=== PATIENT | male | born 1975 | race Caucasian/White ===

== ENCOUNTER 2017-06-01 19:03 | Emergency (ER) | payer MEDICAID ==
--- NOTE | 2017-06-01 20:30 | ED Physician Chart ---
ED Chief Complaint/HPI - Patient Information Date Seen:: 06/01/17 Time Seen:: 20:24 Chief Complaint:: Refill medications History of Present Illness:: 41 yo male needs refill of lorazepam 1mg bid for anxiety for 10 years. The patient switched physicians and the insurance won't be effective until 06/21/17. He last took lorazepam 2 days ago. The patient had history of seizure after stopping lorazepam. Allergies:: Allergies Allergy/AdvReac Type Severity Reaction Status Date / Time prochlorperazine Allergy Verified 06/01/17 19:06 [From Compazine] Vitals:: Vital Signs - 8 hr 06/01/17 19:08 Temp 97.9 F HR 107 RR 15 BP 143/92 O2 Sat % 95 ED Review of Systems - Review of Systems General/Constitutional: No fever Skin: No rash Head: No headache Eyes: No pain ENT: No nasal drainage Neck: No neck pain Cardio Vascular: No chest pain Pulmonary: No SOB GI: No nausea, No vomiting Musculoskeletal: No bone or joint pain Psychiatric: Depression, Anxiety Neurological: No focal symptoms ED Past Medical History - Past Medical History Past Medical History: Asthma/COPD Social History: Non Smoker, No Alcohol, No Drug Use Surgical History: None Psychiatricy History: Depression, Other (anxiety) Family Medical History - Family Member Mother History Unknown: Yes ED Physical Exam - Physical Examination General/Constitutional: Awake, Alert Head: Atraumatic Eyes: PERRL Skin: No ecchymosis ENMT: Nasal exam nl Neck: No nuchal rigidity Respiratory: Clear to Auscultation, No Wheeze/Rhonchi/Rales Cardio Vascular: RRR, No murmur, gallop, rubs, NL S1 S2 GI: No tenderness/rebounding/guarding Extremities: normal strength in all extremities Neuro/Psych: No focal deficits ED Assessment - Assessment General Assessment: Anxiety History of seizure Mild intermittent asthma Assessment/Comments:: Lorazepam 1mg q12h prn anxiety #40 D/c home F/u PCP to establish care ANGELA ED Septic Shock - . Is Septic Shock (SBP<90, OR Lactate>4 mmol\L) present?: No - <6hrs of presentation: Vital Signs: Vital Signs - 8 hr 06/01/17 19:08 Temp 97.9 F HR 107 RR 15 BP 143/92 O2 Sat % 95 ED Reassessment (Disposition) - Reassessment Reassessment Condition:: Unchanged - Patient Disposition Discharge/Transfer:: Home ED Discharge Plan - Patient Disposition Admit/Discharge/Transfer: PT DISCHARGED HOME Instructions: Anxiety and Panic Attacks Additional Instructions: FOLLOW UP WITH YOUR PRIMARY MEDICAL DOCTOR ANGELA
== END 2017-06-01 21:00 | disposition home or self-care (01) ==
LOC: ER 19:03
DX: Z76.0 Encounter for issue of repeat prescription (principal)
CPT/HCPCS: Z7502

== ENCOUNTER 2017-07-03 16:22 | Emergency (ER) | payer MEDICAID ==
--- NOTE | 2017-07-03 17:17 | ED Physician Chart ---
ED Chief Complaint/HPI - Patient Information Date Seen:: 07/03/17 Time Seen:: 16:45 Chief Complaint:: Medication Refills History of Present Illness:: pt presents to ER for medication refills; pt has no complaints; Hx of Asthma and Anxiety Disorder; pt denies H/As, S/T, neck pain, C/P, SOB, Abd. Pain, cough , A/N/V/D/C, fever, chills, or urinary s/s; no SIs Allergies:: Allergies Allergy/AdvReac Type Severity Reaction Status Date / Time prochlorperazine Allergy Verified 06/01/17 19:06 [From Compazine] Vitals:: Vital Signs - 8 hr 07/03/17 16:46 Temp 99.1 F HR 106 RR 18 BP 138/83 O2 Sat % 96 Historian:: Patient Review:: Nurse's Note Reviewed ED Review of Systems - Review of Systems General/Constitutional: No fever, No chills, No weight loss, No weakness, No diaphoresis, No edema, No loss of appetite Skin: No skin lesions, No rash, No bruising Head: No headache, No light-headedness Eyes: No loss of vision, No pain, No diplopia ENT: No earache, No nasal drainage, No sore throat, No tinnitus Neck: No neck pain, No swelling, No thyromegaly, No stiffness, No mass noted Cardio Vascular: No chest pain, No palpitations, No PND, No orthopnea, No edema Pulmonary: No SOB, No cough, No sputum, Wheezing GI: No nausea, No vomiting, No diarrhea, No pain, No melena, No hematochezia, No constipation, No hematemesis G/U: No dysuria, No frequency, No hematuria, No nacturia Musculoskeletal: No bone or joint pain, No back pain, No muscle pain Endocrine: No polyuria, No polydipsia Psychiatric: No prior psych history, No depression, Anxiety, No suicidal ideation, No homicidal ideation, No auditory hallucination, No visual hallucination Hematopoietic: No bruising, No lymphadenopathy Allergic/Immuno: No urticaria, No angioedema Neurological: No syncope, No focal symptoms, No weakness, No paresthesia, No headache, No seizure, No dizziness, No confusion, No vertigo ED Past Medical History - Past Medical History Obtainable: Yes Past Medical History: Asthma/COPD Family History: HTN Social History: Non Smoker, No Alcohol, No Drug Use, Surgical History: None Psychiatricy History: None Medication: Reviewed Family Medical History - Family Member Mother History Unknown: Yes ED Physical Exam - Physical Examination General/Constitutional: Awake, Well-developed, well-nourished, Alert, No distress, GCS 15, Non-toxic appearing, Ambulatory Head: Atraumatic Eyes: Lids, conjuctiva normal, PERRL, EOMI Skin: Nl inspection, No rash, No skin lesions, No ecchymosis, Well hydrated, No lymphadenopathy ENMT: External ears, nose nl, Nasal exam nl, Lips, teeth, gums nl Neck: Nontender, Full ROM w/o pain, No JVD, No nuchal rigidity, No bruit, No mass, No stridor Other Neck comments:: supple; no meningeal signs; no cervical tenderness; no bruits Respiratory: Nl effort/Exclusion, Clear to Auscultation, No Wheeze/Rhonchi/Rales Cardio Vascular: RRR, No murmur, gallop, rubs, NL S1 S2, Carotid/Femoral/Distal pulses equal bilaterally GI: No tenderness/rebounding/guarding, No organomegaly, No hernia, Normal BS's, Nondistended, No mass/bruits, No McBurney tenderness, Rectum exam nl Other GI comments:: no pulsatile masses : No CVA tenderness Extremities: No tenderness or effusion, Full ROM, normal strength in all extremities, No edema, Normal digits & nails Neuro/Psych: Alert/oriented, DTR's symmetric, Normal sensory exam, Normal motor strength, Judgement/insight normal, Mood normal, Normal gait, No focal deficits Misc: Normal back, No paraspinal tenderness ED Septic Shock - . Is Septic Shock (SBP<90, OR Lactate>4 mmol\L) present?: No - <6hrs of presentation: Vital Signs: Vital Signs - 8 hr 07/03/17 16:46 Temp 99.1 F HR 106 RR 18 BP 138/83 O2 Sat % 96 ED Reassessment (Disposition) - Reassessment Reassessment:: pt is asymptomatic upon discharge Reassessment Condition:: Improved - Diagnosis Diagnosis:: Dx: Medication Refills; Asthma; Anxiety Reaction Disorder - Aftercare/Follow up Instructions Aftercare/Follow-Up Instructions:: Counseled pt regarding lab results/diagnosis & need follow up, Refer to Discharge Instructions, Counseled pt & family regarding lab results/diagnosis & need follow up Medication Prescribed:: Rx: Ativan 1.0mg po bid prn anxiety (#6); Proventil Inhaler: one puff qid prn wheezing (one bottle); no refills - Patient Disposition Discharge/Transfer:: Home Condition at Disposition:: Stable, Improved (RTER prn if existing s/s reoccur and/or get worse and/or any other new s/s occur; ACIs given for all above Dx; Refer to Psychiatrist/Cat Dog Or Other Pet Groomer/Fishing Accessories Maker ANGELA; F/U with PMD in one day or prn; RTER prn if concerned)
== END 2017-07-03 17:40 | disposition home or self-care (01) ==
LOC: ER 16:22
DX: J45.909 Unspecified asthma, uncomplicated (principal); F41.1 Generalized anxiety disorder; J44.9 Chronic obstructive pulmonary disease, unspecified; Z76.0 Encounter for issue of repeat prescription
CPT/HCPCS: Z7502

== ENCOUNTER 2017-07-13 16:22 | Emergency (ER) | payer MEDICAID ==
--- NOTE | 2017-07-13 17:34 | ED Physician Chart ---
ED Chief Complaint/HPI - Patient Information Date Seen:: 07/13/17 Time Seen:: 17:28 Chief Complaint:: Refill medications History of Present Illness:: 41 yo male again presented for refill of lorazepam 1mg bid for anxiety. He last refilled lorazepam at [place] [facility] on 06/01/17. The patient switched primary care physicians on 06/21/[address] Truman Simons on 06/28/17. However, Dr. Simons refused to fill the prescriptions. The patient came back to ER on 07/03/17. Dr. Zhang refilled some of the prescription. The patient stated that he had history of seizure after stopping lorazepam. He also took Ventolin 1-2 puff qd prn for asthma, trazodone 200mg qhs, and reglan 10mg po qd prn for sliding hiatal hernia. The patient stated that he had switched to a different physician and it would be effective on 07/22/17. A "red flag" was raised on rapid switching physicians within a short period and further investigation was warranted. Allergies:: Allergies Allergy/AdvReac Type Severity Reaction Status Date / Time prochlorperazine Allergy Verified 06/01/17 19:06 [From Compazine] Vitals:: Vital Signs - 8 hr 07/13/17 16:38 Temp 97.6 F HR 108 RR 22 BP 138/83 O2 Sat % 98 ED Review of Systems - Review of Systems General/Constitutional: No fever Skin: No bruising Head: No headache Eyes: No pain ENT: No nasal drainage Neck: No neck pain Cardio Vascular: No chest pain Pulmonary: No SOB GI: No nausea, No vomiting Musculoskeletal: No bone or joint pain Psychiatric: Depression, Anxiety Neurological: No focal symptoms ED Past Medical History - Past Medical History Past Medical History: HTN, Asthma/COPD, Seizures (Grand mal), Other (Sliding hiatal hernia) Social History: Non Smoker, No Alcohol, Illicit Drug Use Surgical History: None Psychiatricy History: Depression, Other (insomnia, anxiety) Family Medical History - Family Member Mother History Unknown: Yes ED Physical Exam - Physical Examination General/Constitutional: Awake, Alert Head: Atraumatic Eyes: PERRL Skin: No ecchymosis ENMT: Nasal exam nl Neck: No nuchal rigidity Respiratory: Clear to Auscultation, No Wheeze/Rhonchi/Rales Cardio Vascular: RRR, No murmur, gallop, rubs, NL S1 S2 GI: No tenderness/rebounding/guarding Extremities: normal strength in all extremities Neuro/Psych: No focal deficits ED Labs/Radiology/EKG Results - Lab Results Results: Laboratory Results - last 24 hr 07/13/17 07/13/17 07/13/17 14:51 14:51 18:00 WBC 6.1 RBC 6.19 H Hgb 18.3 Hct 54.9 MCV 88.6 MCH 29.5 MCHC Differential 33.3 RDW 12.5 Plt Count 192 MPV 6.9 Neutrophils % 60.4 Lymphocytes % 25.8 Monocytes % 9.1 Eosinophils % 4.6 Basophils % 0.1 Sodium 138 Potassium 4.0 Chloride 102 Carbon Dioxide 30.4 Anion Gap 9.6 BUN 11 Creatinine 0.9 Est GFR ( Amer) > 60.0 Est GFR (Non-Af Amer) > 60.0 BUN/Creatinine Ratio 12.2 Glucose 97 Calcium 9.6 Total Bilirubin 0.4 AST 18 ALT 33 Alkaline Phosphatase 56 Total Protein 6.7 Albumin 4.3 Globulin 2.4 Albumin/Globulin Ratio 1.8 Urine Source RANDOM Urine Color YELLOW Urine Clarity CLEAR Urine pH 7.0 Ur Specific [place] 1.020 Urine Protein NEGATIVE Urine Glucose (UA) NEGATIVE Urine Ketones NEGATIVE Urine Blood NEGATIVE Urine Nitrate NEGATIVE Urine Bilirubin NEGATIVE Urine Urobilinogen 0.2 Ur Leukocyte Esterase NEGATIVE Urine RBC 0-2 H Urine WBC 0-2 Ur Epithelial Cells NONE SEEN Amorphous Sediment MODERATE URATES Urine Bacteria NONE SEEN Urine Opiates Screen Urine Methadone Screen Ur Barbiturates Screen Ur Tricyclics Screen Ur Phencyclidine Scrn Amphetamines Screen U Methamphetamines Scrn U Benzodiazepines Scrn U Cocaine Metab Screen U Cannabinoids Screen 07/13/17 18:00 WBC RBC Hgb Hct MCV MCH MCHC Differential RDW Plt Count MPV Neutrophils % Lymphocytes % Monocytes % Eosinophils % Basophils % Sodium Potassium Chloride Carbon Dioxide Anion Gap BUN Creatinine Est GFR ( Amer) Est GFR (Non-Af Amer) BUN/Creatinine Ratio Glucose Calcium Total Bilirubin AST ALT Alkaline Phosphatase Total Protein Albumin Globulin Albumin/Globulin Ratio Urine Source Urine Color Urine Clarity Urine pH Ur Specific [place] Urine Protein Urine Glucose (UA) Urine Ketones Urine Blood Urine Nitrate Urine Bilirubin Urine Urobilinogen Ur Leukocyte Esterase Urine RBC Urine WBC Ur Epithelial Cells Amorphous Sediment Urine Bacteria Urine Opiates Screen NEGATIVE Urine Methadone Screen POSITIVE Ur Barbiturates Screen NEGATIVE Ur Tricyclics Screen NEGATIVE Ur Phencyclidine Scrn NEGATIVE Amphetamines Screen POSITIVE H U Methamphetamines Scrn NEGATIVE U Benzodiazepines Scrn POSITIVE H U Cocaine Metab Screen NEGATIVE U Cannabinoids Screen POSITIVE H ED Assessment - Assessment General Assessment: A [employer] search showed that the patient acquired lorazepam from 15 different providers over the past 12 months. A urine drug screen showed positive for amphetamine, methadone, benzodiazepines and cannabinoids. Assessment/Comments:: The patient was confronted with [employer] history of "doctor shopping". Based on his positive drug screen and substance abuse history, no prescription would be given to the patient. The patient eloped without signing the AMA. ED Septic Shock - . Is Septic Shock (SBP<90, OR Lactate>4 mmol\\L) present?: No - <6hrs of presentation: Vital Signs: Vital Signs - 8 hr 07/13/17 16:38 Temp 97.6 F HR 108 RR 22 BP 138/83 O2 Sat % 98 ED Reassessment (Disposition) - Reassessment Reassessment Condition:: Unchanged - Patient Disposition Discharge/Transfer:: Elope/AWOL ED Discharge Plan - Patient Disposition Admit/Discharge/Transfer: AGAINST MEDICAL ADVICE Condition at Disposition: Unchanged Forms: Patient Refusal of Treatment
[2017-07-13 17:56] LABS: % BASOPHILS 0.1 % (0.0-2.0); % EOSINOPHILS 4.6 % (0.0-5.0); % LYMPHOCYTES 25.8 % (20.0-50.0); % MONOCYTES 9.1 % (2.0-10.0); % NEUTROPHILS 60.4 % (40.0-80.0); EOSINOPHILE ABSOLUTE 0.3 Th/cmm (0.1-0.4); HEMATOCRIT 54.9 % (41.0-60); HEMOGLOBIN 18.3 gm/dL (12-16); LYMPHOCYTE ABSOLUTE 1.6 Th/cmm (1.5-3.0); MEAN CELL VOLUME 88.6 fl (80-99); MEAN CORPUSCULAR HEMOGLOBIN 29.5 pg (26.0-30.0); MEAN CORPUSCULAR HGB CONC 33.3 pg (28.0-36.0); MEAN PLATELET VOLUME 6.9 fl; MONOCYTE ABSOLUTE 0.6 Th/cmm (0.3-1.0); NEUTROPHILE ABSOLUTE 3.6 Th/cmm (1.8-8.0); PLATELET COUNT 192 Th/cmm (150-400); RED BLOOD COUNT 6.19 Mil/cmm (4.30-5.70); RED CELL DISTRIBUTION WIDTH 12.5 % (11.5-20.0); WHITE BLOOD COUNT 6.1 Th/cmm (4.8-10.8)
[2017-07-13 18:13] LABS: ALB/GLOB RATIO 1.8 (1.0-1.8); ALBUMIN 4.3 gm/dL (4.2-5.5); ALKALINE PHOSPHATASE 56 U/L (34-104); ANION GAP 9.6 (7.0-16.0); BILIRUBIN,TOTAL 0.4 mg/dL (0.3-1.0); BUN - UREA NITROGEN 11 mg/dL (7-25); CALCIUM SERUM 9.6 mg/dL (8.6-10.3); CARBON DIOXIDE 30.4 mEq/L (21.0-31.0); CHLORIDE 102 mEq/L (98-107); CREATININE - SERUM 0.9 mg/dL (0.7-1.3); GFR AFRICAN-AMERICAN > 60.0 ml/min (>90); GFR NON AFRICAN-AMERICAN > 60.0 ml/min; GLUCOSE 97 mg/dL (70-105); SGOT 18 U/L (13-39); SGPT/ALT 33 U/L (7-52); SODIUM SERUM 138 mEq/L (136-145); TOTAL PROTEIN,SERUM 6.7 gm/dL (6.0-8.3)
[2017-07-13 19:17] LABS: URINE MICROSCOPIC INDICATED? YES; URINE SOURCE RANDOM
[2017-07-13 19:22] LABS: URINE BILIRUBIN NEGATIVE (NEGATIVE); URINE BLOOD NEGATIVE (NEGATIVE); URINE GLUCOSE (UA) NEGATIVE (NEGATIVE); URINE KETONE NEGATIVE (NEGATIVE); URINE LEUKOCYTE ESTERASE NEGATIVE (NEGATIVE); URINE NITRATE NEGATIVE (NEGATIVE); URINE PROTEIN NEGATIVE (NEGATIVE); URINE UROBILINOGEN 0.2 E.U./dL (0.2 - 1.0)
[2017-07-13 19:34] LABS: URINE BACTERIA NONE SEEN /hpf (NONE SEEN); URINE CLARITY CLEAR (CLEAR); URINE COLOR YELLOW; URINE EPITHELIAL CELLS NONE SEEN /lpf (FEW); URINE RBC 0-2 /hpf (0-5); URINE WBC 0-2 /hpf (0-5)
[2017-07-13 19:35] LABS: URINE AMORPHOUS SEDIMENT MODERATE URATES (NONE SEEN)
[2017-07-13 20:15] LABS: AMPHETAMINE URINE POSITIVE (NEGATIVE); BARBITURATES URINE NEGATIVE (NEGATIVE); CANNABINOID THC POSITIVE (NEGATIVE); COCAINE METABOLITE QUAL URINE NEGATIVE (NEGATIVE); METHADONE URINE POSITIVE (NEGATIVE); METHAMPHETAMINES QUAL URINE NEGATIVE (NEGATIVE); OPIATES (MORPHINE) QUAL. URINE NEGATIVE (NEGATIVE); PHENCYCLIDINE (PCP) URINE NEGATIVE (NEGATIVE); TRICYCLICS (TCA) QUAL. URINE NEGATIVE (NEGATIVE)
[2017-07-13 20:16] LABS: BENZODIAZEPINES QUAL URINE POSITIVE (NEGATIVE)
== END 2017-07-13 19:20 | disposition left against medical advice (07) ==
LOC: ER 16:22
DX: Z76.0 Encounter for issue of repeat prescription (principal); I10 Essential (primary) hypertension; J44.9 Chronic obstructive pulmonary disease, unspecified; J45.909 Unspecified asthma, uncomplicated
CPT/HCPCS: 36415-UA; 80053-TC; 80307; 81001-TC; 85025-TC; Z7502